=== PATIENT | female | born 1950 | race Caucasian/White ===

== ENCOUNTER → 2019-08-13 09:18 | Outpatient (CLI) | payer MEDICARE, OTHER, SELFPAY ==
--- NOTE | 2019-08-13 09:30 | RAD_ITS ---
CLINICAL HISTORY: Female, 68 years old. Reflux PROCEDURE: Esophagram Technique: Multiple fluoroscopic assessment performed after administration of double contrast medium, followed by single contrast medium with images acquired along the esophagus. Findings: Single and also double contrast study of the esophagus demonstrate that there is presbyesophagus of the esophagus along the mid and distal one third, without evidence of intraluminal lesion or stricture. There is gastroesophageal reflux, up to the mid one-third of the esophagus. Small sliding hiatal hernia is noted. Normal peristalsis of a 0.5 inch barium pill with no delay. No evidence of Zenker''s diverticulum. RAD/Esophagus Only IMPRESSION: Finding consistent with GERD, to mid portion of the esophagus. Small sliding hiatal hernia but no evidence of Zenker''s diverticulum is noted. 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 Electronically Signed: Juan R Boyd MD at 12:53 EST Tel [phone], Service support ,
== END ==
PROVIDERS: Family Provider Family Medicine; PCP Family Medicine; Referring Provider Otolaryngology Otolaryngology/Facial Plastic Surgery; Visit Provider Otolaryngology Otolaryngology/Facial Plastic Surgery
DX: K21.9 Gastro-esophageal reflux disease without esophagitis (principal)
CPT/HCPCS: 74220